=== PATIENT | male | born 2005 | race African-American/Black ===

== ENCOUNTER 2025-02-23 13:27 | Emergency (ER) | payer OTHER ==
[~2025-02-23] VITALS: Ht 188 cm; Wt 75.0 kg
[2025-02-23 13:43] VITALS: O2SAT 100
[2025-02-23] MEDS: ACETAMINOPHEN 325MG TABLET PO STA (15:12)
[2025-02-23] MEDS: KETOROLAC 30MG/ML VIAL IM STA (15:13)
[2025-02-23] MEDS ORDERED: TOPUD PO (15:14)
[2025-02-23] MEDS ORDERED: IBUP-2029 MT (15:14)
[2025-02-23 15:17] VITALS: BP 110/52; PULSE 51; RESP 16; TEMP 36.9; O2SAT 100
== END 2025-02-23 15:19 | disposition home or self-care (01) ==
LOC: ER 13:27
DX: M25.561 Pain in right knee (principal)
CPT/HCPCS: 99283; 73560; 96372; J1885